=== PATIENT | male | born 1990 | race American Indian/Alaskan Native ===

== ENCOUNTER 2018-10-15 10:49 | Emergency (ER) | payer SELFPAY ==
[2018-10-15 10:54] VITALS: BP 144/89
[2018-10-15] MEDS ORDERED: DECADRON IM ONE (11:23)
--- NOTE | 2018-10-15 11:28 | Emergency Department Report ---
ED ENT HPI - General Chief complaint: Sore Throat Stated complaint: SORE THROAT Time Seen by Provider: 10/15/18 11:07 Source: patient Mode of arrival: Ambulatory Limitations: No Limitations - History of Present Illness Initial comments: Patient is a 28-year-old [place] male who is complaining of sore throat for the last 2 days. Patient states pain is transverse with swallowing. Patient is sharp sore pain. Patient denies any cough cold congestion but states he has had chills and possible fever. - Related Data Previous Rx's Medication Instructions Recorded Last Taken Type Amoxicillin [Amoxicillin TAB] 875 mg PO BID #20 tablet 04/28/15 Unknown Rx Ibuprofen [Motrin 800 MG tab] 800 mg PO Q8HR PRN #30 tablet 04/28/15 Unknown Rx Azithromycin [Zithromax Z-ANGELA] 250 mg PO DAILY #6 tablet 10/15/18 Unknown Rx HYDROcodone/ACETAMINOPHEN 15 ml PO Q6H PRN #150 solution 10/15/18 Unknown Rx [Hydrocodon-Acetamin 7.5-325/15] Allergies Allergy/AdvReac Type Severity Reaction Status Date / Time Penicillins Allergy Unknown Verified 10/15/18 10:52 ED Dental HPI - General Chief complaint: Sore Throat Stated complaint: SORE THROAT Time Seen by Provider: 10/15/18 11:07 Source: patient Mode of arrival: Ambulatory Limitations: No Limitations - Related Data Previous Rx's Medication Instructions Recorded Last Taken Type Amoxicillin [Amoxicillin TAB] 875 mg PO BID #20 tablet 04/28/15 Unknown Rx Ibuprofen [Motrin 800 MG tab] 800 mg PO Q8HR PRN #30 tablet 04/28/15 Unknown Rx Azithromycin [Zithromax Z-ANGELA] 250 mg PO DAILY #6 tablet 10/15/18 Unknown Rx HYDROcodone/ACETAMINOPHEN 15 ml PO Q6H PRN #150 solution 10/15/18 Unknown Rx [Hydrocodon-Acetamin 7.5-325/15] Allergies Allergy/AdvReac Type Severity Reaction Status Date / Time Penicillins Allergy Unknown Verified 10/15/18 10:52 ED Review of Systems ROS: Stated complaint: SORE THROAT Other details as noted in HPI Comment: All other systems reviewed and negative ED Past Medical Hx - Past Medical History Previous Medical History?: No - Surgical History Past Surgical History?: No - Social History Smoking Status: Current Every Day Smoker - Medications Home Medications: Home Medications Medication Instructions Recorded Confirmed Last Taken Type Amoxicillin [Amoxicillin TAB] 875 mg PO BID #20 tablet 04/28/15 Unknown Rx Ibuprofen [Motrin 800 MG tab] 800 mg PO Q8HR PRN #30 tablet 04/28/15 Unknown Rx Azithromycin [Zithromax Z-ANGELA] 250 mg PO DAILY #6 tablet 10/15/18 Unknown Rx HYDROcodone/ACETAMINOPHEN 15 ml PO Q6H PRN #150 solution 10/15/18 Unknown Rx [Hydrocodon-Acetamin 7.5-325/15] ED Physical Exam - General Limitations: No Limitations General appearance: alert, in no apparent distress - Head Head exam: Present: atraumatic, normocephalic - Eye Eye exam: Present: normal appearance - ENT ENT exam: Present: mucous membranes moist - Expanded ENT Exam Expanded Throat exam: Positive: tonsillar erythema, tonsillomegaly, tonsillar exudate - Neck Neck exam: Present: normal inspection - Respiratory Respiratory exam: Present: normal lung sounds bilaterally. Absent: respiratory distress - Cardiovascular Cardiovascular Exam: Present: regular rate, normal rhythm. Absent: systolic murmur, diastolic murmur, rubs, gallop - GI/Abdominal GI/Abdominal exam: Present: soft, normal bowel sounds - Rectal Rectal exam: Present: deferred - Extremities Exam Extremities exam: Present: normal inspection - Back Exam Back exam: Present: normal inspection - Neurological Exam Neurological exam: Present: alert, oriented X3 - Psychiatric Psychiatric exam: Present: normal affect, normal mood - Skin Skin exam: Present: warm, dry, intact, normal color. Absent: rash ED Course Vital Signs 10/15/18 10:54 Temperature 98.3 F Pulse Rate 66 Respiratory 18 Rate Blood Pressure 144/89 O2 Sat by Pulse 100 Oximetry ED Medical Decision Making - Medical Decision Making H and to be started on antibiotics and given meds for symptomatic relief. He B [facility] criteria for him. Treatment of his exudative pharyngitis. Critical care attestation.: If time is entered above; I have spent that time in minutes in the direct care of this critically ill patient, excluding procedure time. ED Disposition Clinical Impression: Exudative pharyngitis Disposition: - TO HOME OR SELFCARE Is pt being admited?: No Does the pt Need Aspirin: No Condition: Stable Instructions: Pharyngitis (ED) Referrals: [facility], MD [Referring] - 3-5 Days Time of Disposition: 11:28
== END 2018-10-15 12:02 | disposition home or self-care (01) ==
LOC: ED 10:49
DX: J02.9 Acute pharyngitis, unspecified (principal); F17.200 Nicotine dependence, unspecified, uncomplicated; Z88.0 Allergy status to penicillin
CPT/HCPCS: 96372; 99282; J1100

== ENCOUNTER 2019-12-18 13:16 | Emergency (ER) | payer SELFPAY ==
[2019-12-18 13:24] VITALS: BP 124/66
[2019-12-18] MEDS ORDERED: predniSONE 20 MG TAB PO ONE (14:03)
[2019-12-18] MEDS ORDERED: CYCLOBENZAPRINE 10 MG TAB PO ONE (14:03)
[2019-12-18] MEDS ORDERED: KETOROLAC 60 MG/2 ML INJ IM ONE (14:03)
--- NOTE | 2019-12-18 14:27 | Emergency Department Report ---
ED Back Pain/Injury HPI - General Chief Complaint: Back Pain/Injury Stated Complaint: BACK PAIN Time Seen by Provider: 12/18/19 13:48 Source: patient Limitations: No Limitations - History of Present Illness Initial Comments: Patient is a 29-year-old male presents emergency room with complaints of low back pain that began 3 days ago. Patient states that he was playing basketball and jumped up and felt a pulling sensation in his lower back. He states since then he has felt like he has been having muscle spasms and pain. Patient has been ambulatory. He states that he does have discomfort with movement. He denies any numbness, weakness, bowel or bladder incontinence. He denies any fall or hitting the back directly. No past medical history. No allergies to medications. - Related Data Previous Rx's Medication Instructions Recorded Last Taken Type Amoxicillin [Amoxicillin TAB] 875 mg PO BID #20 tablet 04/28/15 Unknown Rx Ibuprofen [Motrin 800 MG tab] 800 mg PO Q8HR PRN #30 tablet 04/28/15 Unknown Rx Azithromycin [Zithromax Z-ANGELA] 250 mg PO DAILY #6 tablet 10/15/18 Unknown Rx HYDROcodone/ACETAMINOPHEN 15 ml PO Q6H PRN #150 solution 10/15/18 Unknown Rx [Hydrocodon-Acetamin 7.5-325/15] Menthol/Camphor [[place] 1 applicatio TP BID #1 oint...g. 12/18/19 Unknown Rx Ointment] Naproxen [EC-Naprosyn] 500 mg PO BID PRN #20 tablet. 12/18/19 Unknown Rx methOCARBAMOL [Robaxin TAB] 500 mg PO BID PRN #14 tab 12/18/19 Unknown Rx Allergies Allergy/AdvReac Type Severity Reaction Status Date / Time Penicillins Allergy Unknown Verified 10/15/18 10:52 ED Review of Systems ROS: Stated complaint: BACK PAIN Other details as noted in HPI Comment: All other systems reviewed and negative ED Past Medical Hx - Past Medical History Previous Medical History?: No - Surgical History Past Surgical History?: No - Social History Smoking Status: Current Every Day Smoker Substance Use Type: None - Medications Home Medications: Home Medications Medication Instructions Recorded Confirmed Last Taken Type Amoxicillin [Amoxicillin TAB] 875 mg PO BID #20 tablet 04/28/15 Unknown Rx Ibuprofen [Motrin 800 MG tab] 800 mg PO Q8HR PRN #30 tablet 04/28/15 Unknown Rx Azithromycin [Zithromax Z-ANGELA] 250 mg PO DAILY #6 tablet 10/15/18 Unknown Rx HYDROcodone/ACETAMINOPHEN 15 ml PO Q6H PRN #150 solution 10/15/18 Unknown Rx [Hydrocodon-Acetamin 7.5-325/15] Menthol/Camphor [[place] 1 applicatio TP BID #1 oint...g. 12/18/19 Unknown Rx Ointment] Naproxen [EC-Naprosyn] 500 mg PO BID PRN #20 tablet. 12/18/19 Unknown Rx methOCARBAMOL [Robaxin TAB] 500 mg PO BID PRN #14 tab 12/18/19 Unknown Rx ED Physical Exam - General Limitations: No Limitations General appearance: alert, in no apparent distress - Head Head exam: Present: atraumatic, normocephalic - Eye Eye exam: Present: normal appearance - ENT ENT exam: Present: mucous membranes moist - Neck Neck exam: Present: normal inspection, full ROM. Absent: tenderness - Respiratory Respiratory exam: Present: normal lung sounds bilaterally. Absent: respiratory distress, wheezes, rales, rhonchi, stridor, chest wall tenderness, accessory muscle use, decreased breath sounds, prolonged expiratory - Cardiovascular Cardiovascular Exam: Present: regular rate, normal rhythm, normal heart sounds. Absent: systolic murmur, diastolic murmur, rubs, gallop - Back Exam Back exam: Present: normal inspection, full ROM, paraspinal tenderness (bilate ral lumbar paraspinal muscular ttp, no midline C-spine, T-spine, or L-spine ttp, no step offs, no deformities). Absent: vertebral tenderness - Neurological Exam Neurological exam: Present: alert, oriented X3, CN II-XII intact, normal gait. Absent: motor sensory deficit - Psychiatric Psychiatric exam: Present: normal affect, normal mood - Skin Skin exam: Present: warm, dry, intact ED Course Vital Signs 12/18/19 12/18/19 12/18/19 13:20 15:05 15:35 Temperature 98.2 F Pulse Rate 61 Respiratory 18 18 18 Rate Blood Pressure 124/66 O2 Sat by Pulse 99 Oximetry ED Medical Decision Making - Radiology Data Radiology results: report reviewed LUMBAR SPINE 3 VIEWS INDICATION / CLINICAL INFORMATION: MAIN. COMPARISON: None available. FINDINGS: VERTEBRAE: No acute fracture. Mild retrolisthesis is noted at L5-S1 level. DISC SPACES / FACET JOINTS:Mild loss of intervertebral disc space height at the L5-S1 level with associated facet arthropathy and minimal neural foraminal stenosis. PARASPINAL SOFT TISSUES:No significant abnormality. ADDITIONAL FINDINGS: None. Signer Name: Cecilio Whipple MD Signed: 12/18/2019 3:07 PM Workstation Name: [id number] Transcribed By: Dictated By: CECILIO WHIPPLE Electronically Authenticated By: CECILIO WHIPPLE Signed Date/Time: 12/18/19 1507 DD/ 1505 TD/TT: - Medical Decision Making Patient is a 29-year-old male presents emergency room with complaints of low back pain that began 3 days ago. Patient states that he was playing basketball and jumped up and felt a pulling sensation in his lower back. He states since then he has felt like he has been having muscle spasms and pain. Patient has been ambulatory. He states that he does have discomfort with movement. He denies any numbness, weakness, bowel or bladder incontinence. He denies any fall or hitting the back directly. No past medical history. No allergies to medications. vitals are normal. on exam: bilateral lumbar paraspinal muscular ttp, no midline C-spine, T-spine, or L-spine ttp, no step offs, no deformities, no neuro deficits. XR lumbar spine: VERTEBRAE: No acute fracture. Mild retrolisthesis is noted at L5-S1 level. DISC SPACES / FACET JOINTS:Mild loss of intervertebral disc space height at the L5-S1 level with associated facet arthro angel and minimal neural foraminal stenosis. PARASPINAL SOFT TISSUES:No significant abnormality. ADDITIONAL FINDINGS: None. pt did not drive to the ED, given flexeril, toradol, and prednisone. Patient given prescription for naproxen, Robaxin, [place] balm ointment. Discussed all results with patient and answered questions. Patient will be referred to primary care physician and orthopedic. Symptoms most likely related to lumbar strain. Advised patient Please use medication as prescribed as needed. Do not drive or operate heavy machinery while taking muscle relaxer due to potential for drowsiness. Use ice pack, heating pad, rest, Epson salt bath. Follow-up with a primary care doctor. Follow-up with orthopedic doctor. Return to emergency room for any new or worsening symptoms. - Differential Diagnosis strain, sprain, fx, dislocation, DDD, bulging disc Critical care attestation.: If time is entered above; I have spent that time in minutes in the direct care of this critically ill patient, excluding procedure time. ED Disposition Clinical Impression: Acute low back pain Qualifiers: Back pain laterality: bilateral Sciatica presence: without sciatica Qualified Code(s): M54.5 - Low back pain Acute lumbar myofascial strain Qualifiers: Encounter type: initial encounter Qualified Code(s): S39.012A - Strain of muscle, fascia and tendon of lower back, initial encounter Disposition: TO HOME OR SELFCARE Is pt being admited?: No Does the pt Need Aspirin: No Condition: Stable Instructions: Muscle Strain (ED) Additional Instructions: Please use medication as prescribed as needed. Do not drive or operate heavy machinery while taking muscle relaxer due to potential for drowsiness. Use ice pack, heating pad, rest, Epson salt bath. Follow-up with a primary care doctor. Follow-up with orthopedic doctor. Return to emergency room for any new or worsening symptoms. Prescriptions: Naproxen [EC-Naprosyn] 500 mg PO BID PRN #20 tablet.dr PRN Reason: pain methOCARBAMOL [Robaxin TAB] 500 mg PO BID PRN #14 tab PRN Reason: pain Menthol/Camphor [[place] Ointment] 1 applicatio TP BID #1 oint...g. [facility] [Primary Care Provider] - 2-3 Days BRENT BUTLER MD [Staff Physician] - 2-3 Days [facility] [Provider Group] - 2-3 Days Time of Disposition: 15:51 Print Language: KYRGYZ
--- NOTE | 2019-12-18 15:11 | XRay Report ---
. LUMBAR SPINE 3 VIEWS INDICATION / CLINICAL INFORMATION: MAIN. COMPARISON: None available. FINDINGS: VERTEBRAE: No acute fracture. Mild retrolisthesis is noted at L5-S1 level. DISC SPACES / FACET JOINTS:Mild loss of intervertebral disc space height at the L5-S1 level with asso ciated facet arthropathy and minimal neural foraminal stenosis. PARASPINAL SOFT TISSUES:No significant abnormality. ADDITIONAL FINDINGS: None. Signer Name: Cecilio Marroquin MD Signed: 12/18/2019 3:07 PM Workstation Name: [id number]
== END 2019-12-18 16:18 | disposition home or self-care (01) ==
LOC: ED 13:16
DX: S39.012A Strain of muscle, fascia and tendon of lower back, initial encounter (principal); F17.200 Nicotine dependence, unspecified, uncomplicated; X58.XXXA Exposure to other specified factors, initial encounter; Y93.89 Activity, other specified; Y92.89 Other specified places as the place of occurrence of the external cause; Y99.8 Other external cause status
CPT/HCPCS: 72100; 96372; 99283; J1885; J7512

== ENCOUNTER 2021-04-14 05:01 | Emergency (ER) | payer SELFPAY ==
[2021-04-14] MEDS ORDERED: ACETAMINOPHEN 325 MG TAB PO ONE (11:09)
[2021-04-14 11:15] VITALS: BP 153/98
--- NOTE | 2021-04-14 11:32 | Emergency Department Report ---
ED Fever HPI - General Chief Complaint: Fever Stated Complaint: MALAISE, FEVER, COUGH X 1 WEEK Time Seen by Provider: 04/14/21 11:05 - History of Present Illness Initial Comments: Patient is a 30-year-old male presents emergency room with complaints of a fever that began a week ago. He has associated sore throat, chills, generalized body aches, dry cough. Patient states that he was having vomiting and diarrhea but that is resolved. He is able to tolerate p.o. intake. He has not been vaccinated for COVID-19. He reports that his sister tested positive for COVID- 19 and he was around his sister. He has not been tested for COVID-19 since becoming sick. He denies any chest pain, shortness of breath, abdominal pain, ear pain. Allergy to penicillin. ED Review of Systems ROS: Stated complaint: MALAISE, FEVER, COUGH X 1 WEEK Other details as noted in HPI Comment: All other systems reviewed and negative ED Past Medical Hx - Past Medical History Additional medical history: STREP THROAT - Surgical History Past Surgical History?: No - Social History Smoking Status: Current Every Day Smoker Substance Use Type: None - Medications Home Medications: Home Medications Medication Instructions Recorded Confirmed Last Taken Type Amoxicillin [Amoxicillin TAB] 875 mg PO BID #20 tablet 04/28/15 Unknown Rx Ibuprofen [Motrin 800 MG tab] 800 mg PO Q8HR PRN #30 tablet 04/28/15 Unknown Rx Azithromycin [Zithromax Z-ANGELA] 250 mg PO DAILY #6 tablet 10/15/18 Unknown Rx HYDROcodone/ACETAMINOPHEN 15 ml PO Q6H PRN #150 solution 10/15/18 Unknown Rx [Hydrocodon-Acetamin 7.5-325/15] Menthol/Camphor [[place] 1 applicatio TP BID #1 oint...g. 12/18/19 Unknown Rx Ointment] Naproxen [EC-Naprosyn] 500 mg PO BID PRN #20 tablet. 12/18/19 Unknown Rx methOCARBAMOL [Robaxin TAB] 500 mg PO BID PRN #14 tab 12/18/19 Unknown Rx Benzonatate [Tessalon Perles] 100 mg PO Q8HR PRN #12 capsule 04/14/21 Unknown Rx Nystas/Diphen/Xyl Visc/Mylanta 30 ml MM Q4H PRN #300 ml 04/14/21 Unknown Rx [Magic Mouthwash] guaiFENesin ER [Mucinex ER] 600 mg PO Q12H #14 tablet.er 04/14/21 Unknown Rx ED Physical Exam - General Limitations: No Limitations General appearance: alert, in no apparent distress - Head Head exam: Present: atraumatic, normocephalic - Eye Eye exam: Present: normal appearance - ENT ENT exam: Present: mucous membranes moist, TM's normal bilaterally, normal external ear exam, other (mild posterior oropharynx erythema and tonsillar hypertrophy, no exudates, uvula is midline, no uvular edema or deviation, no trismus, no tongue elevation, no muffled voice, no submandibular edema) - Respiratory Respiratory exam: Present: normal lung sounds bilaterally. Absent: respiratory distress, wheezes, rales, rhonchi, stridor, chest wall tenderness, accessory muscle use, decreased breath sounds, prolonged expiratory - Cardiovascular Cardiovascular Exam: Present: regular rate, normal rhythm, normal heart sounds. Absent: systolic murmur, diastolic murmur, rubs, gallop - Neurological Exam Neurological exam: Present: alert, oriented X3 - Psychiatric Psychiatric exam: Present: normal affect, normal mood - Skin Skin exam: Present: warm, dry, intact ED Course Vital Signs 04/14/21 04/14/21 11:14 11:27 Temperature 99.3 F Pulse Rate 71 Respiratory 17 16 Rate Blood Pressure 153/98 [Right] O2 Sat by Pulse 97 Oximetry ED Medical Decision Making - Lab Data Lab Results 04/14/21 Range/Units Unknown Group A Strep Rapid Negative (Negative) - Radiology Data Radiology results: report reviewed Ordering Physician: LATRICIA ANDREWS Date of Service: 04/14/21 Procedure(s): XR chest routine 2V Accession Number(s): [id number] cc: LATRICIA ANDREWS Fluoro Time In Minutes: CHEST 2 VIEWS INDICATION / CLINICAL INFORMATION: cough, fever. COMPARISON: None available. FINDINGS: SUPPORT DEVICES: None. HEART / MEDIASTINUM: No significant abnormality. LUNGS / PLEURA: No significant pulmonary or pleural abnormality. No pneumothorax. ADDITIONAL FINDINGS: No significant additional findings. IMPRESSION: 1. No acute findings. Signer Name: Vignesh Gomez MD Signed: 04/14/2021 11:31 AM Workstation Name: [id number] Transcribed By: TL Dictated By: Vignesh Gomez MD Electronically Authenticated By: Vignesh Gomez MD Signed Date/Time: 04/14/211130 DD/ 30 TD/TT: - Medical Decision Making Patient is a 30-year-old male presents emergency room with complaints of a fever that began a week ago. He has associated sore throat, chills, generalized body aches, dry cough. Patient states that he was having vomiting and diarrhea but that is resolved. He is able to tolerate p.o. intake. He has not been vaccinated for COVID-19. He reports that his sister tested positive for COVID- 19 and he was around his sister. He has not been tested for COVID-19 since becoming sick. He denies any chest pain, shortness of breath, abdominal pain, ear pain. Allergy to penicillin. Vitals are stable, no fever, no tachycardia, no hypoxia. On exam:mild posterior oropharynx erythema and tonsillar hypertrophy, no exudates, uvula is midline, no uvular edema or deviation, no trismus, no tongue elevation, no muffled voice, no submandibular edema, TMs and canals are normal bilaterally, breath sounds are clear bilaterally. Chest x-ray 1. No acute findings. Rapid strep is negative. Patient is presenting with the symptoms during COVID-19 pandemic and has had a positive contact, discussed outpatient testing, discussed self quarantine, discussed return precautions. Discussed supportive care and symptomatic treatment with patient the importance of oral hydration. Advised patient to please take medication as prescribed. Increase your fluid intake. Follow-up with a primary care doctor. Return to emergency room immediately for any new or worsening symptoms. Recommend outpatient COVID-19 testing and if positive will need to self quarantine for 10 days from the onset your symptoms. Critical care attestation.: If time is entered above; I have spent that time in minutes in the direct care of this critically ill patient, excluding procedure time. ED Disposition Clinical Impression: URI (upper respiratory infection) Qualifiers: URI type: unspecified URI Qualified Code(s): J06.9 - Acute upper respiratory infection, unspecified Disposition: 01 HOME / SELF CARE / HOMELESS Is pt being admited?: No Does the pt Need Aspirin: No Condition: Stable Instructions: Viral Respiratory Infection Additional Instructions: please take medication as prescribed. Increase your fluid intake. Follow-up with a primary care doctor. Return to emergency room immediately for any new or worsening symptoms. Recommend outpatient COVID-19 testing and if positive will need to self quarantine for 10 days from the onset your symptoms. Prescriptions: Nystas/Diphen/Xyl Visc/Mylanta [Magic Mouthwash] 30 ml MM Q4H PRN #300 ml PRN Reason: sore throat guaiFENesin ER [Mucinex ER] 600 mg PO Q12H #14 tablet.er Benzonatate [Tessalon Perles] 100 mg PO Q8HR PRN #12 capsule PRN Reason: cough Referrals: PRIMARY CAREMD [Primary Care Provider] - 3-5 Days RUIZ LONGO MD [Staff Physician] - 3-5 Days [facility] [Provider Group] - 3-5 Days Time of Disposition: 11:52 Print Language: NORWEGIAN
--- NOTE | 2021-04-14 11:35 | XRay Report ---
CHEST 2 VIEWS INDICATION / CLINICAL INFORMATION: cough, fever. COMPARISON: None available. FINDINGS: SUPPORT DEVICES: None. HEART / MEDIASTINUM: No significant abnormality. LUNGS / PLEURA: No significant pulmonary or pleural abnormality. No pneumothorax. ADDITIONAL FINDINGS: No significant additional findings. IMPRESSION: 1. No acute findings. Signer Name: Vignesh Gomez MD Signed: 04/14/2021 11:31 AM Workstation Name: [id number]
== END 2021-04-14 12:30 | disposition home or self-care (01) ==
LOC: ED 05:01
DX: J06.9 Acute upper respiratory infection, unspecified (principal); F17.200 Nicotine dependence, unspecified, uncomplicated
CPT/HCPCS: 71046; 87116; 87430; 99284